=== PATIENT | female | born 1970 | race Caucasian/White ===

== ENCOUNTER 2019-12-12 10:02 | Outpatient (CLI) | payer OTHER, SELFPAY ==
--- NOTE | 2019-12-12 13:51 | RAD ---
TWO VIEWS OF THE CHEST: 12/12/19 COMPARISON: None. HISTORY: History of chondrosarcoma. FINDINGS: Two views of the chest show normal sized cardiomediastinal silhouette. There is no evidence of consol idation, mass, or pleural effusion. The bones are unremarkable. IMPRESSION: No evidence of acute cardiopulmonary disease. POS: EAA
--- NOTE | 2019-12-12 15:24 | RAD ---
TWO VIEWS OF THE LEFT FEMUR: 12/12/19 COMPARISON: None. 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 FINDINGS: Two views of the left femur shows the patient to be status post resection of the proximal aspect of t he femur with a long stem left hip arthroplasty. No perihardware lucency is seen. Mark are seen in the soft tissues. IMPRESSION: Status post postsurgical changes of the proximal femur without evidence of complication. POS: EAA
== END 2019-12-12 10:03 | disposition home or self-care (01) ==
LOC: SCSRAD 10:02
DX: C41.9 Malignant neoplasm of bone and articular cartilage, unspecified (principal); Z98.890 Other specified postprocedural states
CPT/HCPCS: 71046

== ENCOUNTER 2020-02-26 12:58 | Outpatient (CLI) | payer OTHER ==
--- NOTE | 2020-02-26 13:48 | RAD ---
FRONTAL PELVIS: 02/26/20 PROVIDED CLINICAL HISTORY: Low back pain. FINDINGS: Comparison is made with the examination dated 12/12/19. Postoperative changes of the left proximal femur has previously described are redemonstrated. There i s no evidence for hardware loosening or migration. There is no evidence for fracture or other acute o sseous abnormality. Right hip joint space appears maintained. SI joints appear symmetric. Phleboliths overlie the pelvis. IMPRESSION: No evidence for an acute osseous abnormality or significant arthropathy. POS: LITO
== END 2020-02-26 12:59 | disposition home or self-care (01) ==
LOC: SCSRAD 12:58
PROVIDERS: ATTEND Physician Assistant
DX: M54.5 Low back pain (principal)
CPT/HCPCS: 72170